=== PATIENT | female | born 1980 | race Caucasian/White ===

== ENCOUNTER 2017-11-20 05:38 | Outpatient (CLI) | payer OTHER | END 2017-11-20 05:39 | disposition critical access hospital (66) | LOC: EMS 05:38 | PROVIDERS: ATTEND Surgery | DX: R11.2 Nausea with vomiting, unspecified (principal); R20.0 Anesthesia of skin; R25.2 Cramp and spasm | CPT/HCPCS: A0425; A0427 ==

== ENCOUNTER 2017-11-20 06:14 | Emergency (ER) | payer OTHER ==
[2017-11-20] MEDS ORDERED: ONDANSETRON ODT 4 MG Prepack 2 TL STA (06:25)
[2017-11-20] MEDS ORDERED: SODIUM CHLORIDE 0.9% 1,000 ML IV ONE (06:25)
--- NOTE | 2017-11-20 06:27 | ED Physician Documentation ---
History of Present Illness - Stated complaint Stated Complaint: N/V/ETOH - Chief complaint Chief Complaint: MHE - History obtained from History obtained from: Patient, EMS - History of Present Illness Timing: Today - Additonal information Additional information: Patient is a 37 year old female with a history of anxiety who is presenting to the emergency department for nausea, vomiting and a panic attack. patient had gone to a wedding yesterday and woke up vomiting wine. patient then proceeded to have a panic attack with shaking and cramping. family called ems. Ems treated the patient with zofran and fluids enroute. Upon initial evaluation in the emergency department patient is awake, alert and calm. Family is with the patient at bedside. Review of Systems Ten Systems: 10 systems reviewed and negative Constitutional: denies: Fever, Chills GI: reports: Nausea, Vomiting Psychiatric: reports: Anxiety PD PAST MEDICAL HISTORY - Present Medications Home Medications: Ambulatory Orders Medication Instructions Recorded Confirmed Ondansetron Odt [Zofran] 4 mg TL Q6H PRN #14 tablet 11/20/17 - Allergies Allergies/Adverse Reactions: Allergies Allergy/AdvReac Type Severity Reaction Status Date / Time No Known Drug Allergies Allergy Verified 11/20/17 06:21 PD ED PE NORMAL - Vitals Vital signs reviewed: Yes - General General: Alert and oriented X 3, No acute distress, Well developed/nourished - HEENT HEENT: Atraumatic, PERRL - Neck Neck: Supple, no meningeal sign - Cardiac Cardiac: RRR - Respiratory Respiratory: No respiratory distress - Abdomen Abdomen: Soft - Derm Derm: Normal color, Warm and dry - Extremities Extremities: No deformity - Neuro Neuro: Alert and oriented X 3, cardiac rn 2-12 intact, No motor deficit, Normal speech Eye Opening: Spontaneous Motor: Obeys Commands Verbal: Oriented GCS Score: 15 - Psych Psych: Normal mood Results - Vitals Vitals: Vital Signs - 24 hr 11/20/17 06:12 Temperature 37.1 C Heart Rate 76 Respiratory 18 Rate Blood Pressure 130/80 O2 Saturation 100 Oxygen O2 Source Room air PD MEDICAL DECISION MAKING - ED course Complexity details: re-evaluated patient, considered differential, d/w patient, d/w family ED course: Patient was seen and examined at bedside. Patient was awake alert and oriented. patient's anxiety had resolved. patient was tolerating PO. Patient required no further inpatient work up and was stable for discharge with outpatient followup. - Sepsis Event Vital Signs: Vital Signs - 24 hr 11/20/17 06:12 Temperature 37.1 C Heart Rate 76 Respiratory 18 Rate Blood Pressure 130/80 O2 Saturation 100 Oxygen O2 Source Room air Departure - Departure Disposition: 01 Home, Self Care Clinical Impression: Anxiety attack Condition: Good Instructions: ED Panic Attack Follow-Up: primary,care provider [Other] - As Needed Prescriptions: Ondansetron Odt [Zofran] 4 mg TL Q6H PRN #14 tablet PRN Reason: Nausea / Vomiting Comments: Your symptoms today are likely secondary to alcohol intoxication and a panic attack. It is important that you take the zofran as needed for nausea and stay well hydrated. You will likely have a headache later on for which you can take ibuprofen or tylenol. You can return to the emergency department at any time for new, worsening or uncontrollable symptoms.
[2017-11-20 06:49] VITALS: BP 128/76
== END 2017-11-20 06:42 | disposition home or self-care (01) ==
LOC: ED 06:14
DX: F41.9 Anxiety disorder, unspecified (principal)
CPT/HCPCS: 99283